=== PATIENT | female | born 1990 | race Two or more races ===

== ENCOUNTER 2020-03-12 20:09 | Emergency (ER) | payer SELFPAY ==
[~2020-03-12] VITALS: Ht 152.4 cm; Wt 70.8 kg
--- NOTE | 2020-03-12 20:27 | NUR ---
BIBRA 60 FOR METH ABUSE PER RA. PT ALERT AND RESPONSIVE ON TRIAGE. PLACED ON MONITOR AND PULSE OX. DENIES BEING HOMELESS. NO ACUTE DISTRESS NOTED. VSS.
--- NOTE | 2020-03-12 22:08 | NUR ---
Patient discharged to home in stable condition. Written and verbal after care instructions given. Patient verbalizes understanding of instruction. Pt signed homeless waiver. vss.
[2020-03-12 22:10] VITALS: BP 121/76
== END 2020-03-12 22:10 | disposition home or self-care (01) ==
LOC: ER 20:11
DX: F15.10 Other stimulant abuse, uncomplicated (principal); F41.1 Generalized anxiety disorder; R00.0 Tachycardia, unspecified; Z59.0 Homelessness